=== PATIENT | male | born 1965 | race African-American/Black ===

== ENCOUNTER 2018-12-10 01:48 | Inpatient (IN) ==
[2018-12-10] MEDS ORDERED: ASPIRIN PO ONE (02:03)
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
[2018-12-10 02:32] LABS: BASO# 0.03 X1000 (0.0-0.2); BASO% 0.6 % (0.0-0.8); EOS% 2.1 % (0.0-10.0); HEMATOCRIT 42.8 % (42.0-52.0); HEMOGLOBIN 14.1 g/dL (14.0-18.0); IMM GRAN# 0.01 X1000 (0.0-0.04); IMM GRAN% 0.2 % (0.0-0.5); LYMPH# 1.54 X1000 (1.2-3.4); LYMPH% 32.8 % (20.5-51.1); MCHC 32.9 g/dL (33-37); MCV 97.1 FL (81-99); MONO# 0.67 X1000 (0.11-0.59); MONO% 14.3 % (1.7-9.3); MPV 9.6 FL (7.4-10.4); NEUT# 2.35 X1000 (1.4-6.5); PLT 262 X1000 (130-400); RBC 4.41 XMIL (4.7-6.1); RDW 13.6 % (11.5-14.5)
[2018-12-10 02:52] LABS: AGAP 10; ALBUMIN 3.8 g/dL (3.5-5.0); ALKALINE PHOSPHATASE 243 U/L (32-122); BUN 25 mg/dL (8-22); CALCIUM 9.1 mg/dL (8.8-10.2); CHLORIDE 99 mmol/L (98-107); COSMO 279; ESTIMATED GFR > 60; GLUCOSE 105 mg/dL (70-104); GOT 84 U/L (10-34); GPT 79 U/L (10-44); POTASSIUM 3.9 mmol/L (3.5-5.1); SODIUM 137 mmol/L (136-145); TCO2 28 mmol/L (25-35)
[2018-12-10 03:21] LABS: CK INDEX 2.2 (0.0-2.5); CK-MB 8.11 ng/mL (0.0-5.0)
[2018-12-10 03:21] LABS: UR AMPHETAMINES QUAL PRESUMPTIVE POSITIVE (NONE DETECT); UR BARBITUATES QUAL NONE DETECTED (NONE DETECT); UR BENZODIAZEPIN QUAL NONE DETECTED (NONE DETECT); UR CANNABINOIDS QUAL PRESUMPTIVE POSITIVE (NONE DETECT); UR COCAINE QUAL NONE DETECTED (NONE DETECT); UR METHADONE QUAL NONE DETECTED (NONE DETECT); UR METHAMPHETAMINE QUAL PRESUMPTIVE POSITIVE (NONE DETECT); UR OPIATES QUAL PRESUMPTIVE POSITIVE (NONE DETECT); UR OXYCODONE QUAL NONE DETECTED (NONE DETECT); UR PCP QUAL NONE DETECTED (NONE DETECT); UR PROPOXYPHENE QUAL NONE DETECTED (NONE DETECT); UR TCA QUAL NONE DETECTED (NONE DETECT)
[2018-12-10] MEDS ORDERED: LASIX IV ONE (04:05)
[2018-12-10] MEDS ORDERED: NITROGLYCERIN TOP ONE (04:06)
[2018-12-10] MEDS ORDERED: LOVENOX SUBQ ONE (05:57)
--- NOTE | 2018-12-10 05:59 | EKG Report ---
Test Performed on : 12/10/2018 01:59:02 AM Test Reason : chest pain Blood Pressure : / mmHG Vent. Rate : 100 BPM Atrial Rate : 100 BPM P-R Int : 240 ms QRS Dur : 144 ms QT Int : 368 ms P-R-T Axes : -04 -84 084 degrees QTc Int : 474 ms Sinus rhythm. with 1st degree AV block. Left axis deviation Left bundle branch block Abnormal ECG When compared with ECG of 31-MAR-2018 10:36, No significant change was found Unconfirmed Result
[2018-12-10] MEDS ORDERED: LOVENOX ONE (06:00)
[2018-12-10] MEDS ORDERED: HUMULIN R (PARKWAY) SUBQ ONE (06:13)
[2018-12-10] MEDS ORDERED: MORPHINE IV PRN (06:15)
[2018-12-10 07:03] LABS: CK INDEX 2.3 (0.0-2.5); CK-MB 7.04 ng/mL (0.0-5.0)
--- NOTE | 2018-12-10 07:13 | Diag Imaging Result Doc PS360 ---
EXAM: CHEST-PORTABLE 12/10/2018 HISTORY: chest pain TECHNIQUE: AP portable at 0236 COMMENT: There is cardiomegaly. There is some fluid in the minor fissure on the right which was not present on 03/31/2018. The inspiration is slightly less optimal. There is some hazy opacity over the left lower lobe. IMPRESSION: Minimal right pleural effusion. Pulmonary edema versus pneumonia left lower lobe. Electronically signed by Yair Montana 12/10/2018 7:10 AM
[2018-12-10] MEDS ORDERED: TYLENOL PO PRN (07:54)
[2018-12-10] MEDS ORDERED: NS 1,000 ML IV PRN (07:54)
[2018-12-10] MEDS ORDERED: ZOFRAN IV PRN (07:54)
[2018-12-10] MEDS: ROCEPHIN 1 GM in NS 50 ML IV SCH (09:07)
[2018-12-10] MEDS: PRILOSEC PO SCH ×2 (09:08→20:31)
[2018-12-10] MEDS: IMDUR PO SCH (09:09)
[2018-12-10] MEDS: ALDACTONE PO SCH (09:09)
[2018-12-10] MEDS: DITROPAN PO SCH ×2 (09:09→20:31)
[2018-12-10] MEDS: COREG PO SCH ×2 (09:09→20:31)
[2018-12-10] MEDS: HUMULIN N INSULIN (PARKWAY) SUBQ SCH (09:19)
--- NOTE | 2018-12-10 09:24 | Diag Imaging Result Doc PS360 ---
EXAM: CT ANGIOGRM PULMONARY ARTERIES 12/10/2018 HISTORY: sob TECHNIQUE: This exam was performed using automated exposure control, adjustment of mA or kV according to patient size, and/or use of iterative reconstruction technique. COMMENT: There is right paratracheal adenopathy, aorticopulmonary window adenopathy. There is motion artifact. There are no filling defects in the larger pulmonary artery branches. There is suboptimal opacification of the thoracic aorta which is not distended. There are no pleural fluid collections. No previous thoracic studies are available for comparison. Comparison is made with the abdominal study of 07/31/2018 where possible. There is some apparent apical fibrosis on the right. There is mild fibrotic scar formation in both lung bases which appear to have been present at the time of the previous abdominal study. There is anasarca in the subcutaneous fat. There is some free fluid in the abdomen. This was not appreciable on the previous study. There is cardiomegaly. There may be stenosis of the subclavian vein on the left. The patient was injected on the left and there are considerable collateral vessels seen over the anterior chest, the epidural plexus and around the scapula. The regional skeleton appears to be intact. IMPRESSION: No definite evidence of pulmonary emboli. Cardiomegaly. Anasarca and minimal ascites. Mediastinal adenopathy. Other nonacute findings as described above. Electronically signed by Yair Montana 12/10/2018 9:22 AM
[2018-12-10] MEDS ORDERED: PNEUMOVAX 23 IM ONE (10:50)
[2018-12-10] MEDS: DUONEB (A & A) INH SCH ×3 (11:33→21:09)
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
[2018-12-10] MEDS: HUMULIN R (PARKWAY) SUBQ SCH ×3 (12:28→20:31)
[2018-12-10] MEDS: LASIX IV SCH (16:36)
--- NOTE | 2018-12-10 17:06 | ECHO REPORT ---
ORDER DATE: 12/10/2018 INTERPRETING PHYSICIAN: Terry Orr MD. ECHOCARDIOGRAPHIC MEASUREMENTS: 1. Interventricular septum 1.5. 2. Left ventricular posterior wall 1.7. 3. Diastolic diameter 6.8. 4. Left atrium 5.74. 5. Aorta 3.3. SUMMARY OF THE 2-DIMENSIONAL FINDINGS: 1. Aortic valve leaflets are trileaflet. 2. Pulmonic valve was normal. There is mild pulmonary regurgitation. 3. Tricuspid valve was normal. 4. Mitral valve was normal. 5. There was moderate tricuspid regurgitation. Peak velocity across the tricuspid valve was 3 m/sec. 6. Pulmonary artery systolic pressure of 50 to 55 mmHg. 7. There is biatrial enlargement, [id number]. 8. There is mild mitral regurgitation. 9. There is no aortic stenosis or regurgitation. 10. Dilated left ventricle with severely reduced systolic function. There is concentric left ventricular hypertrophy. Estimated ejection fraction of 15%. 11. There is diastolic dysfunction grade 3. 12. There is no pericardial effusion, or obvious intracardiac mass or thrombus. cc: Terry Orr MD
--- NOTE | 2018-12-10 17:22 | Diag Imaging Result Doc PS360 ---
EXAM: US ABDOMEN-COMPLETE 12/10/2018 HISTORY: elevated liver enzymes TECHNIQUE: Abdominal ultrasound COMMENT: The liver is unremarkable. The gallbladder is clear and nontender. There is some fluid in the subhepatic space. The spleen is not enlarged. The kidneys are hyperechoic. This was also the case at the time the previous renal ultrasound of 03/30/2013. There is antegrade flow in the portal vein. There is no evidence of biliary dilatation the common bile duct measuring 3 mm. The visualized portions of the aorta and inferior vena cava are within normal limits. The pancreatic head is normal in appearance the remainder is obscured. IMPRESSION: Minimal ascites. Medical renal disease. Electronically signed by aYir Montana 12/10/2018 5:19 PM
[2018-12-10] MEDS: LIPITOR PO SCH (20:31)
[2018-12-10] MEDS: PULMICORT INH SCH (21:09)
[2018-12-11] MEDS: DUONEB (A & A) INH SCH ×4 (04:07→21:02)
[2018-12-11 05:42] LABS: BASO# 0.01 X1000 (0.0-0.2); BASO% 0.2 % (0.0-0.8); EOS# 0.07 X1000 (0.0-0.7); EOS% 1.4 % (0.0-10.0); HEMATOCRIT 39.2 % (42.0-52.0); HEMOGLOBIN 12.5 g/dL (14.0-18.0); IMM GRAN# 0.01 X1000 (0.0-0.04); IMM GRAN% 0.2 % (0.0-0.5); LYMPH# 0.95 X1000 (1.2-3.4); MCH 31.2 PG (27-31); MCHC 31.9 g/dL (33-37); MCV 97.8 FL (81-99); MONO# 0.62 X1000 (0.11-0.59); MONO% 12.4 % (1.7-9.3); MPV 9.8 FL (7.4-10.4); NEUT# 3.33 X1000 (1.4-6.5); NEUT% 66.8 % (42.2-75.2); PLT 219 X1000 (130-400); RBC 4.01 XMIL (4.7-6.1); RDW 13.5 % (11.5-14.5); WBC 4.99 X1000 (4.8-10.8)
[2018-12-11] MEDS: LASIX IV SCH ×2 (05:49→16:16)
[2018-12-11] MEDS: PRILOSEC PO SCH ×3 (05:49→21:16)
[2018-12-11 05:58] LABS: INR 1.36; PROTIME 17.5 Seconds (11.0-16.0)
[2018-12-11 05:59] LABS: PTT 31.6 Seconds (22.3-41.8)
[2018-12-11 06:01] LABS: HEMOGLOBIN A1C 7.6 % (4.8-6.0)
[2018-12-11] MEDS: HUMULIN R (PARKWAY) SUBQ SCH ×4 (06:16→21:16)
[2018-12-11 06:30] LABS: AGAP 9; ALKALINE PHOSPHATASE 210 U/L (32-122); BUN 22 mg/dL (8-22); CALCIUM 8.5 mg/dL (8.8-10.2); CHLORIDE 101 mmol/L (98-107); CHOLESTEROL 104 mg/dL (0-200); CK TOTAL 225 U/L (24-204); COSMO 286; CREATININE 1.1 mg/dL (0.7-1.2); ESTIMATED GFR > 60; GLUCOSE 222 mg/dL (70-104); GOT 76 U/L (10-34); GPT 79 U/L (10-44); HDL 37 mg/dL (35-55); LDL 53 mg/dL; MAGNESIUM 1.8 mg/dL (1.5-2.7); SODIUM 138 mmol/L (136-145); TCO2 28 mmol/L (25-35); TOTAL PROTEIN 6.5 g/dL (6.3-8.3); TRIGLYCERIDES 69 mg/dL (39-160); VLDL 14 mg/dL
--- NOTE | 2018-12-11 07:19 | Diag Imaging Result Doc PS360 ---
EXAM: CHEST-2 VIEWS HISTORY: f/u pna TECHNIQUE: Chest two views COMPARISON: 12/10/2018 FINDINGS: The lungs are well expanded. The heart is enlarged. The vessels are not distended. There are no infiltrates. No pleural effusions. IMPRESSION: Cardiomegaly Electronically signed by Pedro Mckenzie 12/11/2018 7:16 AM
[2018-12-11] MEDS: ROCEPHIN 1 GM in NS 50 ML IV SCH (07:45)
[2018-12-11] MEDS: LOVENOX SUBQ SCH (07:56)
[2018-12-11] MEDS: ASPIRIN PO SCH (08:02)
[2018-12-11] MEDS: ALDACTONE PO SCH (08:02)
[2018-12-11] MEDS: DITROPAN PO SCH ×2 (08:03→21:16)
[2018-12-11] MEDS: HUMULIN N INSULIN (PARKWAY) SUBQ SCH (08:03)
[2018-12-11] MEDS: IMDUR PO SCH (08:03)
[2018-12-11] MEDS: COREG PO SCH ×2 (08:03→21:16)
--- NOTE | 2018-12-11 10:40 | PROGRESS NOTE ---
DATE: 12/11/2018 SUBJECTIVE: The patient reports breathing much better. Denies any chest pain. The shortness of breath that he had at presentation is getting much better. OBJECTIVE: Vital Signs: Temperature 98.2 degrees, heart rate 96, respiratory rate 20, blood pressure 121/70, O2 saturation 100% on 2 L nasal cannula. General: This is a chronically ill- appearing, 53-year-old, male, lying in bed in no acute distress. Cardiovascular: S1, S2 heard. No murmurs, gallops, or rubs. Regular rate and rhythm. Respiratory: Minimal wheezing noted in both pulmonary bases. The patient is not using any accessory muscles or having work of breathing. Abdomen: Soft, nontender to palpation. Bowel sounds present. No organomegaly. Extremities: There is 2+ pitting edema in both lower extremities, a little bit better in comparing with yesterday. Neurological: The patient is alert and oriented x3. Moves all 4 extremities. LABORATORY DATA: Reviewed. ASSESSMENT AND PLAN: 1. Acute hypoxemic respiratory failure secondary to pulmonary edema. We have ordered echocardiogram, which basically confirmed his ejection fraction that is very low at 15%. At this point, will continue with the current management that includes his Lasix 40 mg intravenously every 12 hours. Will continue with the same management. Clinically, he is feeling better. 2. Left lower lobe pneumonia. The patient reports that that sensation of shortness of breath at presentation is getting much better. Will continue with Rocephin. 3. Coronary artery disease. The patient is not complaining of any chest pain. Will continue with the current medications. 4. Chronic obstructive pulmonary disease. The patient is not in any exacerbation. Will provide breathing treatments only. 5. Hypertension. Blood pressure is under control. Will continue with the same management. 6. Hyperlipidemia. Will continue with the statin. 7. Polysubstance abuse. The patient is strongly recommended to stop using drugs. 8. Diabetes mellitus type 2. Will continue with sliding scale insulin and Accu-Chek before meals and also at bedtime. Hemoglobin A1c is 7.6, which means pretty much well-controlled diabetes. cc: John Vines MD
[2018-12-11] MEDS: PULMICORT INH SCH ×2 (11:20→21:03)
[2018-12-11] MEDS: NICODERM PATCH TD SCH (12:29)
[2018-12-11] MEDS: LIPITOR PO SCH (21:16)
[2018-12-12] MEDS: DUONEB (A & A) INH SCH (04:25)
--- NOTE | 2018-12-12 05:22 | EKG Report ---
Test Performed on : 12/11/2018 9:44:52 PM Test Reason : VTACH Blood Pressure : / mmHG Vent. Rate : 102 BPM Atrial Rate : 102 BPM P-R Int : 200 ms QRS Dur : 146 ms QT Int : 404 ms P-R-T Axes : 000 -80 092 degrees QTc Int : 526 ms Sinus tachycardia. Left axis deviation Left bundle branch block Abnormal ECG When compared with ECG of 10-DEC-2018 01:59, (Unconfirmed) [place] interval has decreased Unconfirmed Result
[2018-12-12 05:49] LABS: BASO# 0.01 X1000 (0.0-0.2); BASO% 0.2 % (0.0-0.8); EOS# 0.11 X1000 (0.0-0.7); HEMATOCRIT 41.2 % (42.0-52.0); HEMOGLOBIN 13.3 g/dL (14.0-18.0); IMM GRAN# 0.02 X1000 (0.0-0.04); IMM GRAN% 0.4 % (0.0-0.5); LYMPH# 0.97 X1000 (1.2-3.4); LYMPH% 17.4 % (20.5-51.1); MCH 31.8 PG (27-31); MCHC 32.3 g/dL (33-37); MCV 98.6 FL (81-99); MONO# 0.71 X1000 (0.11-0.59); MONO% 12.7 % (1.7-9.3); MPV 9.9 FL (7.4-10.4); NEUT# 3.75 X1000 (1.4-6.5); NEUT% 67.3 % (42.2-75.2); PLT 246 X1000 (130-400); RBC 4.18 XMIL (4.7-6.1); RDW 13.5 % (11.5-14.5); WBC 5.57 X1000 (4.8-10.8)
[2018-12-12] MEDS: HUMULIN R (PARKWAY) SUBQ SCH (06:06)
[2018-12-12] MEDS: PRILOSEC PO SCH (06:06)
[2018-12-12] MEDS: LASIX IV SCH (06:06)
[2018-12-12 06:13] LABS: AGAP 9; ALKALINE PHOSPHATASE 217 U/L (32-122); BUN 18 mg/dL (8-22); CHLORIDE 102 mmol/L (98-107); COSMO 284; CREATININE 1.2 mg/dL (0.7-1.2); ESTIMATED GFR > 60; GLUCOSE 218 mg/dL (70-104); GOT 67 U/L (10-34); GPT 81 U/L (10-44); MAGNESIUM 1.8 mg/dL (1.5-2.7); POTASSIUM 4.6 mmol/L (3.5-5.1); SODIUM 138 mmol/L (136-145); TCO2 27 mmol/L (25-35); TOTAL PROTEIN 7.3 g/dL (6.3-8.3)
[2018-12-12 07:39] VITALS: BP 132/74
[2018-12-12] MEDS: DITROPAN PO SCH (08:11)
[2018-12-12] MEDS: ASPIRIN PO SCH (08:11)
[2018-12-12] MEDS: ROCEPHIN 1 GM in NS 50 ML IV SCH (08:11)
[2018-12-12] MEDS: LOVENOX SUBQ SCH (08:11)
[2018-12-12] MEDS: COREG PO SCH (08:11)
[2018-12-12] MEDS: IMDUR PO SCH (08:11)
[2018-12-12] MEDS: ALDACTONE PO SCH (08:11)
[2018-12-12] MEDS: HUMULIN N INSULIN (PARKWAY) SUBQ SCH (08:12)
[2018-12-12] MEDS: NICODERM PATCH TD SCH (08:43)
--- NOTE | 2018-12-13 07:47 | DISCHARGE SUMMARY ---
ADMISSION DATE: 12/10/2018 DISCHARGE DATE: 12/12/2018 CONSULTATIONS: None. PERTINENT PROCEDURES: Pulmonary arteriogram. No evidence of PE, cardiomegaly, anasarca, minimal ascites, mediastinal adenopathy. No other acute findings. Echocardiogram, EF of 15%, diastolic dysfunction grade 3. Abdominal ultrasound, minimal ascites, medical renal disease. DISCHARGE DIAGNOSES: 1. Acute hypoxemic respiratory failure secondary to pulmonary edema, improved. Patient is saturating 98% on room air. 2. Left lower lobe pneumonia. Patient will be discharged on oral antibiotics. 3. Coronary artery disease. No chest pain. 4. Chronic obstructive pulmonary disease without exacerbation. 5. Hypertension, controlled. 6. Hyperlipidemia. Continue statin. 7. Polysubstance abuse. The patient has been educated on abstinence. 8. Diabetes mellitus type 2. The patient will continue on home medications and a diabetic diet. 9. Acute on chronic systolic congestive heart failure with ejection fraction showing 15%. The patient has been diuresed. 10. Pulmonary hypertension. Echocardiogram showed 60 to 65 mmHg. He was started on Coreg as well as Lasix. Will continue his oral home Lasix. 11. Medical noncompliance. The patient has been educated to take his medications. 12. Fatty liver with hyperbilirubinemia and transaminitis. Another hepatitis profile was done. 13. Polysubstance abuse. The patient's toxicology screen was positive for opiates, amphetamines, methamphetamines, and cannabinoids. Again, he has been educated on abstinence. HOSPITAL COURSE: Briefly, Mr. Henley is a 53-year-old, male with a past medical history of congestive heart failure since 2011, diabetes mellitus type 2, COPD, hypertension, renal infarct, medical noncompliance, coronary artery disease with SD in 1991, left eye blindness, obstructive sleep apnea. Reported he has been out of his home medications for 3 to 4 months. He reported, for 2 weeks, he has been coughing up a greenish-yellow colored phlegm, worsening shortness of breath at night, he was having to sit up in a chair to sleep, and swelling to the lower extremities more than normal. He did admit to using methamphetamines and marijuana. Imaging revealed a left lower lobe pneumonia and a right pleural effusion and some pulmonary edema, so he was admitted and treated for pneumonia and congestive heart failure. Started on antibiotics and IV Lasix, diuresed appropriately. He is now saturating well on room air. His last chest x-ray shows improvement in his pulmonary edema and he will be discharged home today. HOME MEDICATIONS: 1. Glipizide 10 mg p.o. b.i.d. 2. Lasix 80 mg p.o. daily. 3. Cefdinir 300 mg p.o. b.i.d. FOLLOWUP: Mr. Henley has been encouraged to follow up with the primary care provider, take his home medications as instructed, and continue with polysubstance abuse abstinence. He can return to the ED or call 911 for any worsening of symptoms. Dictated by JAYCOB Ba for John Vines MD Addendum: Patient seen and examined by myself. Agree with JAYCOB note. It reflects my assessment and plan. Patient is being discharged in stable condition. Will be seen by PCP in a week. cc: Jhon Vines MD MTDD
[2018-12-13 12:53] LABS: HEPATITIS PROFILE ACUTE SEE COMMENTS
== END 2018-12-12 09:30 | disposition home or self-care (01) | DRG 291 ==
LOC: P.ED 01:48 → P.MEDSURG 01:48 → OBSVTOIN 06:39
PROVIDERS: ATTEND Internal Medicine

== ENCOUNTER 2018-12-29 12:22 | Inpatient (IN) ==
[2018-12-29] MEDS ORDERED: ASPIRIN PO ONE (12:38)
[2018-12-29] MEDS ORDERED: DUONEB (A & A) INH ONE (12:49)
--- NOTE | 2018-12-29 13:16 | Diag Imaging Result Doc PS360 ---
CHEST-2 VIEWS - 12/29/2018 INDICATION: sob cough hx chf pulmonary edema pneumonia COMPARISON: 12/11/2018 FINDINGS: There is significant cardiomegaly. There is a small focal infiltrate in the lateral left upper chest. There is some stable scarring in the right costophrenic angle. No pneumothorax or significant pleural effusion. No pulmonary edema. IMPRESSION: 1. Left upper lobe infiltrate/pneumonia. 2. Cardiomegaly. Electronically signed by Reed Martínez 12/29/2018 1:14 PM
[2018-12-29 13:23] LABS: ESTIMATED GFR > 60
[2018-12-29 13:24] LABS: HEMATOCRIT 44.6 % (42.0-52.0); HEMOGLOBIN 14.9 g/dL (14.0-18.0); MCH 32.8 PG (27-31); MCHC 33.4 g/dL (33-37); MCV 98.2 FL (81-99); PLT 191 X1000 (130-400); RBC 4.54 XMIL (4.7-6.1); RDW 15.4 % (11.5-14.5)
[2018-12-29 13:25] LABS: AGAP 6; BUN 25 mg/dL (8-22); CHLORIDE 102 mmol/L (98-107); COSMO 280; CREATININE 1.2 mg/dL (0.7-1.2); GLUCOSE 165 mg/dL (70-104); LYMPH% 30.4 % (20.5-51.1); MPV 9.5 FL (7.4-10.4); NEUT% 57.1 % (42.2-75.2); SODIUM 136 mmol/L (136-145); TCO2 29 mmol/L (25-35)
[2018-12-29 13:26] LABS: ALBUMIN 3.3 g/dL (3.5-5.0); ALKALINE PHOSPHATASE 222 U/L (32-122); CK PROFILE 333 U/L (24-204); GOT 59 U/L (10-34); GPT 63 U/L (10-44); TOTAL PROTEIN 7.7 g/dL (6.3-8.3)
[2018-12-29 13:27] LABS: CALCIUM 6.8 mg/dL (8.8-10.2)
[2018-12-29] MEDS ORDERED: LEVAQUIN 500 MG/D5W 500 MG/100 ML IVPB IV ONE (13:28)
[2018-12-29 13:29] LABS: BANDS 1 % (0-1); LYMPHS 33 % (21-51); MONO 6 % (1-9); SEGS 60 % (42-75)
[2018-12-29] MEDS ORDERED: CALCIUM GLUCONATE 1 GM in NS 50 ML IV ONE (13:32)
[2018-12-29 13:38] LABS: INR 1.26; PROTIME 16.5 Seconds (11.0-16.0); PTT 29.3 Seconds (22.3-41.8)
[2018-12-29 13:46] LABS: CK INDEX 2.6 (0.0-2.5); CK-MB 8.72 ng/mL (0.0-5.0)
--- NOTE | 2018-12-29 14:19 | EKG Report ---
Test Performed on : 12/29/2018 1:00:03 PM Test Reason : sob cp Blood Pressure : / mmHG Vent. Rate : 103 BPM Atrial Rate : 103 BPM P-R Int : 200 ms QRS Dur : 140 ms QT Int : 398 ms P-R-T Axes : 000 -79 086 degrees QTc Int : 521 ms Sinus tachycardia. Left axis deviation Nonspecific intraventricular block Cannot rule out Anteroseptal infarct , age undetermined T wave abnormality, consider lateral ischemia Abnormal ECG When compared with ECG of 11-DEC-2018 21:44, Previous ECG has undetermined rhythm, needs review Nonspecific intraventricular block has replaced Left bundle branch block Minimal criteria for Anteroseptal infarct are now present Unconfirmed Result
--- NOTE | 2018-12-29 14:27 | PROVIDER DOCUMENTATION ---
This chart was entered by Oscar Taveras Scribe, acting as scribe for Ruben Hughes MD. HPI-Respiratory General - General Chief Complaint: Shortness of Breath Stated Complaint: REVISIT / RETURN Time Seen by Provider: 12/29/18 12:28 Source: patient Allergies/Adverse Reactions: Patient Allergies Allergy/AdvReac Type Severity Reaction Status Date / Time lisinopril Allergy Intermediate SWELLING Verified 02/13/18 23:40 digoxin AdvReac Severe DIZZINESS Verified 02/13/18 23:40 Home Medications: Home Medication List Medication Instructions Recorded Confirmed Last Taken Type Furosemide [Lasix] 80 mg PO DAILY 05/25/14 12/10/18 05/25/14 06:00 History 1 Glipizide [Glipizide Xl] 10 mg PO BID 05/25/14 12/10/18 10/27/18 History Cefdinir 300 mg PO BID #20 cap 12/12/18 Unknown Rx Mirtazapine [Remeron] 15 mg PO QHS #90 tab 12/12/18 Unknown Rx - History of Present Illness-Resp Nature of Presenting Problem: Pt is a 53 yom who presents to the ED with a CC of shortness of breath. Pt reports he was seen at [facility] ED recently for similar symptoms. Pt also complains of chest pain, edema, and a productive cough. Pt reports he recently finished a prescription of antibiotics from his previous ED visit. Pt reports recent polysubstance abuse. Upon examination the pt had 1+ edema bilaterally to the lower extremities. Quality of Pain: reports: dull Severity in ED: reports: mild Onset/Duration: reports: other (12 days) Timing: reports: still present Cough Quality/Degree: reports: mild, productive cough Episode Frequency: occasional episodes Current Respiratory Medication Therapy: Initiated see nurses note Associated Symptoms: reports: cough, nasal congestion, shortness of breath Similar Symptoms Previously?: Yes Recently seen or treated by another doctor?: Yes Review of Systems - Adult - REVIEW OF SYSTEMS - ADULT Constitutional: reports: no symptoms reported Eyes: reports: no symptoms reported Ears, Nose, Mouth & Throat: reports: see HPI, sinus problem Cardiovascular: reports: see HPI, chest pain, edema Respiratory: reports: see HPI, cough, excessive sputum production, shortness of breath Gastrointestinal: reports: no symptoms reported Genitourinary: reports: no symptoms reported Musculoskeletal: reports: no symptoms reported Integumentary: reports: no symptoms reported Neurological: reports: no symptoms reported Psychiatric: reports: no symptoms reported Endocrine: reports: no symptoms reported Hematologic/Lymphatic: reports: no symptoms reported Allergic/Immunologic: reports: no symptoms reported All Other Systems: Reviewed and Negative Past History - Adult - PAST MEDICAL HISTORY-ADULT Review of Records: reports: Old Records Reviewed, Nursing Assessment Review, Medications Reviewed, Social history reviewed & non-contributory. Major Childhood Illnesses: reports: denies history Cardiovascular: reports: blood clots, CAD, CHF, HTN, hyperlipidemia, pacemaker Respiratory: reports: COPD, lung disease, pneumonia, bronchitis Gastrointestinal: reports: denies history Obstetrical/Gynecological: reports: denies history Genitourinary: reports: denies history Musculoskeletal: reports: denies history Neurological: reports: denies history, Seizures/Epilepsy Endocrine/Immune: reports: Diabetes Other Conditions: reports: denies history - PRIOR SURGERIES/PROCEDURES Surgical/Procedure History: reports: pacemaker, other (eyes) - IMMUNIZATION STATUS Childhood Immunizations: See Nurse Assessment Flu Vaccine: See Nurse Assessment - FAMILY HISTORY Family History: seizures - SOCIAL HISTORY Smoking: cigarettes, less than 1 pack/day Substance Use: alcohol, other Alcohol Use Frequency: occasionally Physical Exam-General - PHYSICAL EXAM-ADULT Initial Vital Signs Reviewed: Yes - CONSTITUTIONAL General Appearance: alert, mild distress - EYES Eyes: PERRL/EOMI - HEAD, EARS, NOSE, MOUTH & THROAT HENMT: moist mucous membranes - NECK Neck: non-tender, full range of motion - RESPIRATORY Respiratory: chest non-tender, lungs clear - CARDIOVASCULAR Cardiovascular: normal peripheral pulses, regular rate, rhythm - GASTROINTESTINAL (ABDOMEN) Abdominal Exam: non tender, soft - MUSCULOSKELETAL Extremity: normal range of motion, non-tender, pedal edema - SKIN Integumentary: normal color, warm/dry, swelling - NEUROLOGIC Neurologic: grossly normal - PSYCHIATRIC Psych/Mental Status: normal mood/affect, normal thought content, normal thought process, oriented x 3 Progress - PLAN OF CARE/RESULTS Progress/Plan/Lab Results: Vital Signs - 8 hr 12/29/18 12:30 12/29/18 13:00 12/29/18 13:39 Temperature 98.1 F Pulse Rate 102 H 108 H 100 H Respiratory Rate 18 38 H 24 Blood Pressure 139/102 120/91 O2 Sat by Pulse Oximetry 94 L 93 L 99 12/29/18 14:49 12/29/18 15:00 Temperature Pulse Rate 101 H 105 H Respiratory Rate 25 H 22 Blood Pressure 124/92 124/92 O2 Sat by Pulse Oximetry 99 100 Laboratory Results - last 24 hr 12/29/18 12/29/18 12/29/18 12:50 12:50 12:50 WBC 4.50 L RBC 4.54 L Hgb 14.9 Hct 44.6 MCV 98.2 MCH 32.8 H MCHC 33.4 RDW Std Deviation 15.4 H Plt Count 191 MPV 9.5 Neut % (Auto) 57.1 Lymph % (Auto) 30.4 Lucas % (Auto) Not Reportable Eos % (Auto) Not Reportable Baso % (Auto) Not Reportable Neut # (Auto) 2.50 Lymph # (Auto) 1.40 Lucas # (Auto) Not Reportable Eos # (Auto) Not Reportable Baso # (Auto) Not Reportable Segmented Neutrophils 60 Band Neutrophils 1 Lymphocytes 33 Monocytes 6 PT INR PTT (Actin FS) Sodium 136 Potassium 4.0 Chloride 102 Carbon Dioxide 29 Anion Gap 6 BUN 25 H Creatinine 1.2 Estimated GFR/1.73 m2 > 60 BUN/Creatinine Ratio 21 Glucose 165 H Calculated Osmolality 280 Calcium 6.8 L* Total Bilirubin 3.60 H AST 59 H ALT 63 H Alkaline Phosphatase 222 H Creatine Kinase 333 H Creatine Kinase Index 2.6 H CK-MB (CK-2) 8.72 H Troponin T Fvf-E-[place]gue[place] Pept 5829 H Total Protein 7.7 Albumin 3.3 L Globulin 4.0 Albumin/Globulin Ratio 1.0 Plasma Lactate Urine Opiates Screen Ur Oxycodone Screen Urine Methadone Screen U Propoxyphene Qual Ur Barbituates Screen Ur Tricyclics Screen Ur Phencyclidine Scrn Ur Amphetamines Screen U Methamphetamines Scrn U Benzodiazepines Scrn Urine Cocaine Screen U Cannabinoids Screen 12/29/18 12/29/18 12/29/18 12:50 12:50 13:24 WBC RBC Hgb Hct MCV MCH MCHC RDW Std Deviation Plt Count MPV Neut % (Auto) Lymph % (Auto) Lucas % (Auto) Eos % (Auto) Baso % (Auto) Neut # (Auto) Lymph # (Auto) Lucas # (Auto) Eos # (Auto) Baso # (Auto) Segmented Neutrophils Band Neutrophils Lymphocytes Monocytes PT 16.5 H INR 1.26 PTT (Actin FS) 29.3 Sodium Potassium Chloride Carbon Dioxide Anion Gap BUN Creatinine Estimated GFR/1.73 m2 BUN/Creatinine Ratio Glucose Calculated Osmolality Calcium Total Bilirubin AST ALT Alkaline Phosphatase Creatine Kinase Creatine Kinase Index CK-MB (CK-2) Troponin T 0.019 Cjg-E-Kskcokfsydd Pept Total Protein Albumin Globulin Albumin/Globulin Ratio Plasma Lactate Urine Opiates Screen NONE DETECTED Ur Oxycodone Screen NONE DETECTED Urine Methadone Screen NONE DETECTED U Propoxyphene Qual NONE DETECTED Ur Barbituates Screen NONE DETECTED Ur Tricyclics Screen NONE DETECTED Ur Phencyclidine Scrn NONE DETECTED Ur Amphetamines Screen PRESUMPTIVE POSITIVE A U Methamphetamines Scrn PRESUMPTIVE POSITIVE A U Benzodiazepines Scrn NONE DETECTED Urine Cocaine Screen NONE DETECTED U Cannabinoids Screen NONE DETECTED 12/29/18 13:43 WBC RBC Hgb Hct MCV MCH MCHC RDW Std Deviation Plt Count MPV Neut % (Auto) Lymph % (Auto) Lucas % (Auto) Eos % (Auto) Baso % (Auto) Neut # (Auto) Lymph # (Auto) Lucas # (Auto) Eos # (Auto) Baso # (Auto) Segmented Neutrophils Band Neutrophils Lymphocytes Monocytes PT INR PTT (Actin FS) Sodium Potassium Chloride Carbon Dioxide Anion Gap BUN Creatinine Estimated GFR/1.73 m2 BUN/Creatinine Ratio Glucose Calculated Osmolality Calcium Total Bilirubin AST ALT Alkaline Phosphatase Creatine Kinase Creatine Kinase Index CK-MB (CK-2) Troponin T Epm-X-Wdtsnpcvnta Pept Total Protein Albumin Globulin Albumin/Globulin Ratio Plasma Lactate 1.2 Urine Opiates Screen Ur Oxycodone Screen Urine Methadone Screen U Propoxyphene Qual Ur Barbituates Screen Ur Tricyclics Screen Ur Phencyclidine Scrn Ur Amphetamines Screen U Methamphetamines Scrn U Benzodiazepines Scrn Urine Cocaine Screen U Cannabinoids Screen Orders Category Date Time Status Apply Mechanical Device [QM] ORDERED Care 12/29/18 14:50 Active Cardiac Monitoring DIRECTED Care 12/29/18 12:39 Active FSBS/Accucheck Result AC + HS Care 12/29/18 14:50 Active Oxygen Therapy- ED Nursing DIRECTED Care 12/29/18 12:39 Active Saline Loc NOW Care 12/29/18 12:39 Active Update & Confirm Home Medicati ROUTINE Care 12/29/18 14:50 Active Z-Document. for Tele Applied ORDERED Care 12/29/18 14:50 Active CHEST-2 VIEWS [RAD] Stat Exams 12/29/18 12:39 Completed BLOOD CULTURE [BLDCUL] Stat Lab 12/29/18 13:28 Ordered CBC WITH DIFF [HEME] DAILY Lab 12/30/18 06:00 Ordered CBC WITH DIFF [HEME] DAILY Lab 12/31/18 06:00 Ordered CBC WITH ELECTRONIC DIFF [HEME] Stat Lab 12/29/18 12:50 Completed CK PROFILE [SP CHEM] Q6H Lab 12/29/18 17:00 Ordered CK PROFILE [SP CHEM] Q6H Lab 12/29/18 23:00 Ordered CK PROFILE [SP CHEM] Stat Lab 12/29/18 12:50 Completed CK PROFILE [SP CHEM] Timed Lab 12/29/18 14:38 Received COMPREHENSIVE METABOLIC PANEL [CHEM] Routine Lab 12/30/18 05:00 Ordered COMPREHENSIVE METABOLIC PANEL [CHEM] Stat Lab 12/29/18 12:50 Completed LACTATE, PLASMA [CHEM] Stat Lab 12/29/18 13:43 Completed MAGNESIUM [CHEM] Routine Lab 12/30/18 05:00 Ordered PRO B-NATRIURETIC PEPTIDE Stat Lab 12/29/18 12:50 Completed PROTIME WITH INR [COAG] Stat Lab 12/29/18 12:50 Completed PTT [COAG] Stat Lab 12/29/18 12:50 Completed TROPONIN T Q6H Lab 12/29/18 17:00 Ordered TROPONIN T Q6H Lab 12/29/18 23:00 Ordered TROPONIN T Stat Lab 12/29/18 12:50 Completed TROPONIN T Timed Lab 12/29/18 14:38 Received URINE DRUG SCREEN PL Stat Lab 12/29/18 13:24 Completed Albuterol 2.5MG/Ipratrop 0.5MG [Duoneb (A & A)] Med 12/29/18 12:49 Discontinued 3 ml INH NOW ONE Aspirin Med 12/29/18 12:38 Discontinued 325 mg PO NOW ONE Calcium Gluconate 1 gm Med 12/29/18 13:32 Discontinued 0.9% Sodium Chloride Inj [Ns] 50 ml IV NOW Furosemide [Lasix] Med 12/29/18 14:51 Discontinued 40 mg IV NOW ONE Furosemide [Lasix] Med 12/29/18 21:00 Active 40 mg IV Q12H Levofloxacin 500 mg/D5w [Levaquin 500 mg/D5w] Med 12/29/18 13:28 Discontinued 500 mg in 100 ml IV NOW Levofloxacin 750 mg/D5w [Levaquin 750 mg/D5w] Med 12/30/18 09:00 Active 750 mg in 150 ml IV Q24H Piperacillin/Tazobactam [Zosyn] 3.375 gm Med 12/29/18 15:00 Active 0.9% Sodium Chloride Inj [Ns] 50 ml IV Q6H Aerosol Treatments Routine Oth 12/29/18 12:49 Completed Aerosol Treatments Stat Oth 12/29/18 12:49 Completed CP/SOB/Palp >45 yrs of Age Stat Ot 12/29/18 12:38 Ordered Incentive Spirometer RTQ4H Ot 12/29/18 15:30 Ordered Incentive Spirometer RTQ4H Ot 12/29/18 19:30 Ordered Incentive Spirometer RTQ4H Ot 12/29/18 23:30 Ordered Incentive Spirometer RTQ4H Ot 12/30/18 03:30 Ordered Incentive Spirometer RTQ4H Ot 12/30/18 07:30 Ordered Incentive Spirometer RTQ4H Ot 12/30/18 11:30 Ordered Incentive Spirometer RTQ4H Ot 12/30/18 15:30 Ordered Incentive Spirometer RTQ4H Ot 12/30/18 19:30 Ordered Incentive Spirometer RTQ4H Ot 12/30/18 23:30 Ordered Incentive Spirometer RTQ4H Ot 12/31/18 03:30 Ordered Telemetry [OM.EQ] Routine Ot 12/29/18 14:50 Active EKG [EKG] Stat Ther 12/29/18 12:39 Draft EKG [EKG] Stat Ther 12/29/18 14:50 Ordered Transfer/Admit Order [TRANSFER] Routine Transfer 12/29/18 14:58 Ordered Pt sats returned to 95% with 2 L O2 by N/C. Result Diagrams: 12/29/18 12:50 12/29/18 12:50 - EKG 1 Time of EKG reading by physician:: 13:00 EKG Read and Signed by:: Ruben Hughes EKG Interpretation (*Must complete 3 of following elements*): Abnormal (Left axis deviation; Nonspecific intraventricular block; cannot rule out anteroseptal infarct, age undetermined; T wave abnormality, consider lateral ischemia) Rate: 103 Rhythm: Sinus tachycardia [place]: left QRS: normal [place] Interval: normal ST Wave: non-specific ST changes 2 Time of EKG reading by physician:: 13:40 EKG Read and Signed by:: Ruben Hughes EKG Interpretation (*Must complete 3 of following elements*): Abnormal (Sinus rhythm with 1st degree AV block; Possible left atrial enlargement; Left axis deviation; Left bundle branch block) Rate: 83 Rhythm: Sinus rhythm with 1st degree AV block [place]: left QRS: normal [place] Interval: normal ST Wave: normal - XRAY 1 XRAY: Bilateral XRAY Study: Chest Impression: See EMR Report ( CHEST-2 VIEWS - 12/29/2018 INDICATION: sob cough hx chf pulmonary edema pneumonia COMPARISON: 12/11/2018 FINDINGS: There is significant cardiomegaly. There is a small focal infiltrate in the lateral left upper chest. There is some stable scarring in the right c ostophrenic angle. No pneumothorax or significant pleural effusion. No pulmonary edema. IMPRESSION: 1. Left upper lobe infiltrate/pneumonia. 2. Cardiomegaly. Electronically signed by Reed Martínez 12/29/2018 1:14 PM 12/29/18 1314 Interpreting Physician: Reed Martínez MD Dictated Date/Time: 12/29/18 1312 cc: Ruben Hughes MD; None,PCP) - CONSULTS/PCP/HOSPITALIST Notification #1 *Consult/PCP/Hospitalist*: Pastora Navarro LABOR RELATIONS SPECIALIST for Dr Pool Consult Disposition: Admit Departure - Departure Date of Disposition Decision: 12/29/18 Time of Disposition Decision: 14:23 DIAGNOSIS: CHF (congestive heart failure), Pneumonia, Hypocalcemia Disposition: ADMITTED INPATIENT 09 Certified Medical Emergency: Emergent Condition: Fair - Critical Care Note This patient required my direct & personal management of CC.: Yes Attestation - Physician/ SHANEL Attestation Patient care was provided by Advanced Practice Provider:: No The physician spent face to face time with patient:: Yes Advanced Practice Provider documentation review:: Supervising physician onsite a nd consulted in the evaluation and care of this patient. The physician did have a face to face encounter with the patient. This chart was documented by the indicated scribe, (Oscar Taveras, Esmer) and accurately reflects the services I performed and decisions made by , Ruben Hughes MD, as attested by the provider's signature.
[2018-12-29 14:32] LABS: UR AMPHETAMINES QUAL PRESUMPTIVE POSITIVE (NONE DETECT); UR BARBITUATES QUAL NONE DETECTED (NONE DETECT); UR BENZODIAZEPIN QUAL NONE DETECTED (NONE DETECT); UR CANNABINOIDS QUAL NONE DETECTED (NONE DETECT); UR COCAINE QUAL NONE DETECTED (NONE DETECT); UR METHADONE QUAL NONE DETECTED (NONE DETECT); UR METHAMPHETAMINE QUAL PRESUMPTIVE POSITIVE (NONE DETECT); UR OPIATES QUAL NONE DETECTED (NONE DETECT); UR OXYCODONE QUAL NONE DETECTED (NONE DETECT); UR PCP QUAL NONE DETECTED (NONE DETECT); UR PROPOXYPHENE QUAL NONE DETECTED (NONE DETECT); UR TCA QUAL NONE DETECTED (NONE DETECT)
[2018-12-29] MEDS ORDERED: LASIX IV ONE (14:51)
[2018-12-29] MEDS ORDERED: LASIX ONE (15:13)
--- NOTE | 2018-12-29 15:50 | EKG Report ---
Test Performed on : 12/29/2018 3:39:34 PM Test Reason : protocol Blood Pressure : / mmHG Vent. Rate : 083 BPM Atrial Rate : 083 BPM P-R Int : 270 ms QRS Dur : 142 ms QT Int : 400 ms P-R-T Axes : 050 -76 094 degrees QTc Int : 470 ms Sinus rhythm. with 1st degree AV block. Possible Left atrial enlargement Left axis deviation Left bundle branch block Abnormal ECG When compared with ECG of 29-DEC-2018 13:00, (Unconfirmed) [place] interval has increased Unconfirmed Result
[2018-12-29 16:03] LABS: CK INDEX 2.5 (0.0-2.5); CK-MB 7.51 ng/mL (0.0-5.0)
[2018-12-29] MEDS: ZOSYN 3.375 GM in NS 50 ML IV SCH ×2 (16:47→21:18)
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
[2018-12-29 18:25] LABS: CK INDEX 2.7 (0.0-2.5); CK-MB 7.16 ng/mL (0.0-5.0)
--- NOTE | 2018-12-29 20:07 | HISTORY AND PHYSICAL ---
CHIEF COMPLAINT: Shortness of breath. ADDENDUM: Patient seen and examined by myself. Full note dictated and discussed with nurse practitioner. Patient presented to the hospital with increased work of breathing, shortness of breath. He unfortunately has an ejection fraction of 15%, has been incredibly noncompliant with his medications. We are going to admit him to the hospital, place him on antibiotics as it appears though he has pneumonia. We will consider Entresto, and we will follow. cc: Obie Pool MD
[2018-12-29] MEDS: LASIX IV SCH (21:18)
[2018-12-29] MEDS: ENTRESTO 24 MG-26 MG TABLET PO SCH (21:33)
[2018-12-29 23:55] LABS: CK INDEX 2.8 (0.0-2.5); CK-MB 6.73 ng/mL (0.0-5.0)
[2018-12-30] MEDS: ZOSYN 3.375 GM in NS 50 ML IV SCH ×3 (02:39→19:33)
[2018-12-30 05:09] LABS: BASO# 0.02 X1000 (0.0-0.2); BASO% 0.4 % (0.0-0.8); EOS# 0.12 X1000 (0.0-0.7); EOS% 2.7 % (0.0-10.0); HEMATOCRIT 42.7 % (42.0-52.0); HEMOGLOBIN 13.8 g/dL (14.0-18.0); LYMPH# 1.27 X1000 (1.2-3.4); LYMPH% 28.2 % (20.5-51.1); MCH 31.4 PG (27-31); MCHC 32.3 g/dL (33-37); MCV 97.3 FL (81-99); MONO# 0.57 X1000 (0.11-0.59); MONO% 12.6 % (1.7-9.3); NEUT# 2.53 X1000 (1.4-6.5); NEUT% 56.1 % (42.2-75.2); PLT 169 X1000 (130-400); RBC 4.39 XMIL (4.7-6.1); RDW 14.8 % (11.5-14.5); WBC 4.51 X1000 (4.8-10.8)
[2018-12-30 05:38] LABS: AGAP 10; ALBUMIN 2.8 g/dL (3.5-5.0); ALKALINE PHOSPHATASE 219 U/L (32-122); BUN 27 mg/dL (8-22); CALCIUM 8.7 mg/dL (8.8-10.2); CHLORIDE 105 mmol/L (98-107); COSMO 284; CREATININE 1.1 mg/dL (0.7-1.2); ESTIMATED GFR > 60; GLUCOSE 152 mg/dL (70-104); GOT 49 U/L (10-34); GPT 53 U/L (10-44); MAGNESIUM 1.7 mg/dL (1.5-2.7); POTASSIUM 4.1 mmol/L (3.5-5.1); SODIUM 138 mmol/L (136-145); TCO2 23 mmol/L (25-35); TOTAL PROTEIN 7.4 g/dL (6.3-8.3)
[2018-12-30] MEDS: LASIX IV SCH ×2 (09:53→21:45)
[2018-12-30] MEDS: LEVAQUIN 750 MG/D5W 750 MG/150 ML IVPB IV SCH (09:53)
[2018-12-30] MEDS: ENTRESTO 24 MG-26 MG TABLET PO SCH ×2 (09:53→21:44)
--- NOTE | 2018-12-30 13:41 | PROGRESS NOTE ---
DATE: 12/30/2018 SUBJECTIVE: The patient notes that he still feels bad, but feels better. Notes that he has had less cough, less shortness of breath, less fever, less dyspnea on exertion. Denies any fevers or chills. PHYSICAL EXAMINATION: Temperature 97, pulse 92, respiratory 25, BP 106/74.General: Patient is awake, in no current respiratory distress. He is pleasant to talk with. HEENT: Normocephalic. Neck: Supple. Cardiovascular: Regular rate. Chest: Decreased but equal. No crackles currently. No wheezing. Abdomen: Soft. Extremities: Moves all extremities. Neurologic: No changes. ASSESSMENT: 1. Congestive heart failure with a very low ejection fraction of 15%. We started him on Entresto. He seems to be tolerating. We are going to continue Lasix today and hopefully can transition to p.o. Lasix tomorrow if he continues to improve. 2. Diabetes. 3. Chronic obstructive pulmonary disease. 4. Hypertension. Blood pressures are stable currently. 5. Chronic medical noncompliance. PLAN: As noted continue Entresto. Continue Lasix and we will follow. Hopefully home over the next couple of days. cc: Obie Pool MD
--- NOTE | 2018-12-30 17:27 | PROGRESS NOTE ---
DATE: 12/30/2018 SUBJECTIVE: Patient notes that he is feeling okay. Denies any chest pain or palpitations. PHYSICAL EXAMINATION: Vital Signs: Reviewed. He is awake and alert. He is sitting up in the chair. He is in no respiratory distress. HEENT: Normocephalic. Neck: Supple. Cardiovascular: Regular rate. Chest: Clear. No crackles. Abdomen: Soft. Extremities: Moves all extremities. He does have trace edema. ASSESSMENT: 1. Congestive heart failure with exacerbation. Currently, patient is tolerating Entresto. 2. Left upper lobe pneumonia. 3. Chest pain. 4. Diabetes. 5. Hypertension. 6. Hypocalcemia. PLAN: We will continue patient in the hospital today. Continue to follow. Hopefully, his symptoms will improve, and he can discharge home over the next day or two. cc: Obie Pool MD
[2018-12-31] MEDS: ZOSYN 3.375 GM in NS 50 ML IV SCH ×5 (02:41→20:54)
[2018-12-31 05:41] LABS: BASO# 0.02 X1000 (0.0-0.2); BASO% 0.4 % (0.0-0.8); EOS% 1.9 % (0.0-10.0); HEMATOCRIT 46.1 % (42.0-52.0); IMM GRAN# 0.01 X1000 (0.0-0.04); IMM GRAN% 0.2 % (0.0-0.5); LYMPH# 1.15 X1000 (1.2-3.4); LYMPH% 22.2 % (20.5-51.1); MCH 31.6 PG (27-31); MCHC 32.5 g/dL (33-37); MCV 97.1 FL (81-99); MONO# 0.63 X1000 (0.11-0.59); MONO% 12.2 % (1.7-9.3); MPV 10.1 FL (7.4-10.4); NEUT# 3.26 X1000 (1.4-6.5); NEUT% 63.1 % (42.2-75.2); PLT 165 X1000 (130-400); RBC 4.75 XMIL (4.7-6.1); RDW 14.5 % (11.5-14.5); WBC 5.17 X1000 (4.8-10.8)
[2018-12-31] MEDS: ASPIRIN PO SCH (10:04)
[2018-12-31] MEDS: ALDACTONE PO SCH (10:04)
[2018-12-31] MEDS: LEVAQUIN 750 MG/D5W 750 MG/150 ML IVPB IV SCH (10:05)
[2018-12-31] MEDS: ENTRESTO 24 MG-26 MG TABLET PO SCH ×2 (10:05→20:55)
--- NOTE | 2018-12-31 10:23 | PROGRESS NOTE ---
DATE: 12/31/2018 SUBJECTIVE: Patient feels better this morning and denies having any acute complaints. OBJECTIVE: Vital Signs: Temperature 97.4 degrees, pulse 104 per minute, respiratory rate 22 per minute, blood pressure 116/97, pulse oximetry 98% on 3 L of oxygen via nasal cannula. General: Patient is alert and oriented x3. He does not appear to be in any acute distress. Cardiovascular System: First and second heart sounds are audible without murmurs, gallops or rubs. Respiratory System: Bilateral lung air entry is moderately decreased but there are no rales or rhonchi present on auscultation. Gastrointestinal System: Abdomen is soft and nondistended. Normal bowel sounds are present. DIAGNOSTIC DATA: CBC is nondiagnostic and chemistry showed glucose levels of 152. AST 49, ALT 53, alkaline phosphatase 219, and albumin level of 2.8. Rest of the comprehensive metabolic panel is nondiagnostic. Chest x-ray done on 12/29/2018 showed left upper lobe infiltrate. IMPRESSION: 1. Left upper lobe pneumonia. 2. Ischemic cardiomyopathy. 3. Type 2 diabetes mellitus. 4. Multisubstance abuse. PLAN: The patient will continue to receive Zosyn intravenously for his pneumonia. He is also getting levofloxacin IV. We are going to switch him to oral furosemide 40 mg orally once daily and I am going to initiate him on spironolactone 25 mg orally once daily in the morning. Furthermore, I am going to initiate him on aspirin 81 mg orally once daily along with pravastatin 20 mg orally once daily at bedtime because of his ischemic cardiomyopathy. He will continue to receive Entresto 24 mg/26 mg orally twice daily. Because of his left upper lobe pneumonia and history of drug abuse, I am going to obtain a QuantiFERON TB testing to rule out any tuberculosis. Further recommendation will be given as per outcome of these measures. cc: MD Obie Javier MD
[2018-12-31] MEDS ORDERED: PRAVACHOL PO SCH (21:00)
[2019-01-01] MEDS: ZOSYN 3.375 GM in NS 50 ML IV SCH ×2 (01:29→06:22)
[2019-01-01 07:02] LABS: BASO# 0.03 X1000 (0.0-0.2); BASO% 0.6 % (0.0-0.8); HEMATOCRIT 45.1 % (42.0-52.0); HEMOGLOBIN 14.5 g/dL (14.0-18.0); IMM GRAN# 0.01 X1000 (0.0-0.04); IMM GRAN% 0.2 % (0.0-0.5); LYMPH% 28.5 % (20.5-51.1); MCH 31.2 PG (27-31); MCHC 32.2 g/dL (33-37); MONO# 0.64 X1000 (0.11-0.59); MPV 10.2 FL (7.4-10.4); NEUT# 2.73 X1000 (1.4-6.5); NEUT% 55.7 % (42.2-75.2); PLT 184 X1000 (130-400); RBC 4.65 XMIL (4.7-6.1); RDW 14.2 % (11.5-14.5); WBC 4.91 X1000 (4.8-10.8)
[2019-01-01 07:24] LABS: AGAP 6; BUN 17 mg/dL (8-22); CALCIUM 8.1 mg/dL (8.8-10.2); CHLORIDE 106 mmol/L (98-107); COSMO 284; CREATININE 0.9 mg/dL (0.7-1.2); ESTIMATED GFR > 60; GLUCOSE 258 mg/dL (70-104); POTASSIUM 3.9 mmol/L (3.5-5.1); SODIUM 137 mmol/L (136-145); TCO2 25 mmol/L (25-35)
[2019-01-01 08:00] VITALS: BP 115/91
--- NOTE | 2019-01-01 08:19 | Diag Imaging Result Doc PS360 ---
EXAM: CHEST-PORTABLE - 01/01/2019 HISTORY: Pneumonia TECHNIQUE: Portable chest one view COMPARISON: 12/29/2018 FINDINGS: There is stable cardiomegaly. There is a possible decrease in left upper lobe infiltrate. There are no other interval changes identified. IMPRESSION: Stable cardiomegaly. Possible decrease in left upper lobe infiltrate. Electronically signed by Luisito Arthur 01/01/2019 8:17 AM
[2019-01-01] MEDS: ASPIRIN PO SCH (08:50)
[2019-01-01] MEDS: ALDACTONE PO SCH (08:50)
[2019-01-01] MEDS: ENTRESTO 24 MG-26 MG TABLET PO SCH (08:50)
[2019-01-01] MEDS: LEVAQUIN 750 MG/D5W 750 MG/150 ML IVPB IV SCH (08:50)
[2019-01-01] MEDS ORDERED: TOPROL XL PO SCH (09:00)
[2019-01-01] MEDS ORDERED: LASIX PO SCH (09:00)
--- NOTE | 2019-01-01 10:16 | DISCHARGE SUMMARY ---
ADMISSION DATE: 12/29/2018 DISCHARGE DATE: 01/01/2019 DISCHARGE DIAGNOSIS: 1. Left upper lobe pneumonia. 2. Ischemic cardiomyopathy. 3. Type 2 diabetes mellitus. 4. Multi substance drug abuse. HOSPITAL COURSE: Mr. Henley is a 53-year-old gentleman who came into the emergency room with complaint of having shortness of breath. He has not been compliant with his home medications and has multiple admissions because of that. He was admitted to the hospital and was initiated on Zosyn along with levofloxacin intravenously. His left upper lobe infiltrate has improved since admission. We are therefore going to discharge him home. I did optimize his routine medications for ischemic cardiomyopathy. Since patient's condition has improved, we are going to let him go home today. We did order QuantiFERON-TB testing, which is pending at the time of this dictation. DISCHARGE MEDICATIONS: 1. Levofloxacin 750 mg orally once daily for 7 days. 2. Furosemide 40 mg orally once daily in the morning. 3. Lisinopril 20 mg orally once daily. 4. Pravastatin 20 mg orally once daily at bedtime. 5. Metoprolol ER 50 mg orally once daily. 6. Aspirin 81 mg orally once daily. 7. Spironolactone 25 mg orally once daily in the morning. 8. Glipizide XL 10 mg orally twice daily. 9. Mirtazapine 15 mg orally once daily at bedtime. FOLLOW-UP: He will follow up with his PCP in approximately 1 to 2 weeks. CONDITION: Stable. DISPOSITION: Home. cc: MD Obie Javier MD
[2019-01-01] MEDS ORDERED: FLU VACCINE IM ONE (10:58)
[2019-01-01] MEDS ORDERED: PNEUMOVAX 23 IM ONE (11:00)
== END 2019-01-01 11:16 | disposition home or self-care (01) | DRG 291 ==
LOC: P.ED 12:22 → P.MEDSURG 15:13 → SUATTDRO 15:13
PROVIDERS: ADMIT Family Medicine; ATTEND Internal Medicine

== ENCOUNTER 2019-02-05 14:52 | Inpatient (IN) ==
--- NOTE | 2019-02-05 15:34 | Diag Imaging Result Doc PS360 ---
EXAM: CHEST-1 VIEW INDICATION: POSSIBLE SEPSIS TECHNIQUE: One view COMPARISON: 01/29/2019 FINDINGS: The central vasculature is mildly prominent suggesting pulmonary venous congestion. There is trace atelectasis versus scarring at the right costophrenic angle. The lungs are grossly clear, otherwise. There is no discrete pleural fluid collection or pneumothorax. There is stable cardiomegaly. IMPRESSION: Cardiomegaly and suggestion of mild pulmonary venous congestion. Electronically signed by Roland Uriostegui 02/05/2019 3:32 PM
[2019-02-05 16:09] LABS: BASO# 0.02 X1000 (0.0-0.2); BASO% 0.3 % (0.0-0.8); EOS# 0.04 X1000 (0.0-0.7); EOS% 0.7 % (0.0-10.0); HEMATOCRIT 43.4 % (42.0-52.0); HEMOGLOBIN 14.3 g/dL (14.0-18.0); LYMPH# 1.34 X1000 (1.2-3.4); MCH 31.8 PG (27-31); MCHC 32.9 g/dL (33-37); MCV 96.4 FL (81-99); MONO# 0.76 X1000 (0.11-0.59); MONO% 12.5 % (1.7-9.3); MPV 9.7 FL (7.4-10.4); NEUT# 3.92 X1000 (1.4-6.5); NEUT% 64.5 % (42.2-75.2); PLT 194 X1000 (130-400); RDW 14.9 % (11.5-14.5); WBC 6.08 X1000 (4.8-10.8)
[2019-02-05 16:28] LABS: INR 1.37; PROTIME 17.1 Seconds (11.0-16.0)
[2019-02-05 16:29] LABS: PTT 25.9 Seconds (22.3-41.8)
[2019-02-05 16:31] LABS: AGAP 14; ALB/GLOB RATIO 0.8; ALKALINE PHOSPHATASE 202 U/L (32-122); BUN 19 mg/dL (8-22); CALCIUM 8.7 mg/dL (8.8-10.2); CHLORIDE 99 mmol/L (98-107); COSMO 280; CREATININE 1.1 mg/dL (0.7-1.2); ESTIMATED GFR > 60; GLUCOSE 105 mg/dL (70-104); GOT 56 U/L (10-34); GPT 41 U/L (10-44); POTASSIUM 4.4 mmol/L (3.5-5.1); SODIUM 139 mmol/L (136-145); TCO2 26 mmol/L (25-35); TOTAL BILIRUBIN 4.09 mg/dL (0.20-1.00)
[2019-02-05 16:35] LABS: CK PROFILE 219 U/L (24-204)
[2019-02-05 16:37] LABS: URINE SOURCE CLEAN CATCH
[2019-02-05] MEDS ORDERED: LASIX IV ONE (16:38)
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
[2019-02-05 16:42] LABS: BILIRUBIN URINE SMALL (NEGATIVE); BLOOD URINE NEGATIVE (NEGATIVE); COLOR YELLOW; GLUCOSE URINE NEGATIVE (NEGATIVE); KETONE URINE NEGATIVE (NEGATIVE); LEUKOCYTES URINE NEGATIVE (NEGATIVE); NITRITE URINE NEGATIVE (NEGATIVE); PH URINE 6.5; PROTEIN URINE 30 mg/dL (NEGATIVE); SP GRAVITY URINE 1.018; TURBIDITY URINE CLEAR (CLEAR); UROBILINOGEN URINE 6 mg/dL (NORMAL)
[2019-02-05 16:58] LABS: UR EPITHELIAL CELLS <10 /HPF (<10); URINE BACTERIA NEGATIVE /HPF; URINE RBC <10 /HPF (<10); URINE WBC <10 /HPF (<10)
[2019-02-05 17:09] LABS: CK INDEX 2.2 (0.0-2.5); CK-MB 4.72 ng/mL (0.0-5.0)
[2019-02-05] MEDS: ROCEPHIN 1 GM in NS 50 ML IV SCH (19:54)
[2019-02-05 20:04] LABS: UR AMPHETAMINES QUAL PRESUMPTIVE POSITIVE (NONE DETECT); UR BARBITUATES QUAL NONE DETECTED (NONE DETECT); UR BENZODIAZEPIN QUAL NONE DETECTED (NONE DETECT); UR CANNABINOIDS QUAL PRESUMPTIVE POSITIVE (NONE DETECT); UR COCAINE QUAL NONE DETECTED (NONE DETECT); UR METHADONE QUAL NONE DETECTED (NONE DETECT); UR OPIATES QUAL NONE DETECTED (NONE DETECT); UR OXYCODONE QUAL NONE DETECTED (NONE DETECT); UR PCP QUAL NONE DETECTED (NONE DETECT)
[2019-02-05] MEDS ORDERED: ZOFRAN IV PRN (21:15)
[2019-02-05] MEDS ORDERED: REMERON PO PRN (21:15)
[2019-02-05] MEDS ORDERED: NS NEB INH SCH (21:15)
--- NOTE | 2019-02-05 22:18 | EKG Report ---
Test Performed on : 02/05/2019 8:01:37 PM Test Reason : chest pain Blood Pressure : / mmHG Vent. Rate : 099 BPM Atrial Rate : 099 BPM P-R Int : 200 ms QRS Dur : 146 ms QT Int : 404 ms P-R-T Axes : 000 270 085 degrees QTc Int : 518 ms Normal sinus rhythm. Right superior axis deviation Nonspecific intraventricular block Abnormal ECG When compared with ECG of 05-FEB-2019 14:58, (Unconfirmed) LA interval has decreased QT has lengthened Unconfirmed Result
[2019-02-05] MEDS: HUMULIN R SUBQ SCH (22:53)
[2019-02-05] MEDS: XOPENEX NEB INH PRN (23:07)
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
[2019-02-06] MEDS: APRESOLINE PO SCH ×3 (01:16→20:51)
[2019-02-06] MEDS: COREG PO SCH ×3 (04:20→20:51)
[2019-02-06] MEDS: LASIX IV SCH ×2 (05:02→17:43)
[2019-02-06] MEDS: LOVENOX SUBQ SCH (05:03)
[2019-02-06 05:20] LABS: BASO# 0.02 X1000 (0.0-0.2); BASO% 0.3 % (0.0-0.8); EOS# 0.07 X1000 (0.0-0.7); EOS% 1.1 % (0.0-10.0); HEMATOCRIT 41.5 % (42.0-52.0); HEMOGLOBIN 13.8 g/dL (14.0-18.0); LYMPH# 1.29 X1000 (1.2-3.4); LYMPH% 20.3 % (20.5-51.1); MCH 32.3 PG (27-31); MCHC 33.3 g/dL (33-37); MCV 97.2 FL (81-99); MONO# 0.82 X1000 (0.11-0.59); MONO% 12.9 % (1.7-9.3); MPV 9.9 FL (7.4-10.4); NEUT# 4.14 X1000 (1.4-6.5); NEUT% 65.4 % (42.2-75.2); PLT 184 X1000 (130-400); RBC 4.27 XMIL (4.7-6.1); RDW 14.9 % (11.5-14.5); WBC 6.34 X1000 (4.8-10.8)
[2019-02-06 05:54] LABS: HEMOGLOBIN A1C 7.6 % (4.8-6.0)
[2019-02-06 06:26] LABS: AGAP 13; ALB/GLOB RATIO 0.6; ALBUMIN 2.8 g/dL (3.5-5.0); ALKALINE PHOSPHATASE 192 U/L (32-122); BUN 20 mg/dL (8-22); CALCIUM 8.3 mg/dL (8.8-10.2); CHLORIDE 99 mmol/L (98-107); COSMO 280; CREATININE 1.2 mg/dL (0.7-1.2); ESTIMATED GFR > 60; GLUCOSE 166 mg/dL (70-104); GOT 49 U/L (10-34); GPT 40 U/L (10-44); POTASSIUM 3.9 mmol/L (3.5-5.1); SODIUM 137 mmol/L (136-145); TCO2 25 mmol/L (25-35); TOTAL BILIRUBIN 3.35 mg/dL (0.20-1.00); TOTAL PROTEIN 7.2 g/dL (6.3-8.3)
[2019-02-06] MEDS: HUMULIN N SUBQ SCH (07:28)
--- NOTE | 2019-02-06 09:02 | Diag Imaging Result Doc PS360 ---
EXAM: CHEST-2 VIEWS 02/06/2019 HISTORY: hypoxia TECHNIQUE: PA and lateral chest COMMENT: There is what appears to be fibrosis in the right costophrenic sulcus laterally. The left lower lung is clearer than on the previous study of 02/05/2019. Otherwise are has been no appreciable change. IMPRESSION: Cardiomegaly. Stable chest. Electronically signed by Yair Montana 02/06/2019 8:59 AM
[2019-02-06] MEDS: XOPENEX NEB INH PRN ×4 (09:11→19:39)
[2019-02-06] MEDS: ALDACTONE PO SCH (09:34)
[2019-02-06] MEDS: GLUCOTROL XL PO SCH (09:34)
[2019-02-06] MEDS: HUMULIN R SUBQ SCH ×4 (09:36→20:53)
--- NOTE | 2019-02-06 15:00 | PROGRESS NOTE ---
DATE: 02/06/2019 SUBJECTIVE: The patient has no major complaints. OBJECTIVE: Blood pressure is 107/80, heart rate of 103, respiratory rate of 22, temperature 98.6 degrees, 92% on 2 L. Cardiovascular: Regular rate and rhythm. Pulmonary: Bilateral breath sounds clear to auscultation. GI: Soft, nontender, nondistended. Bowel sounds were positive. He has a midline hernia which is reducible and a periumbilical hernia which is also reducible. The patient is otherwise stable. He is complaining of discomfort but no actual nausea and emesis. Laboratory Data: White count 6, hemoglobin and hematocrit 13 and 41. Creatinine of 1.2. Total bilirubin 3.35, AST and ALT of 49 and 40. Amphetamines were positive on his UDS. PROBLEM LIST: 1. Acute congestive heart failure exacerbation. We will continue Lasix. He is on Coreg and diuretics, and follow. He still abuses methamphetamine which is probably the mechanism of this tachycardia. We will continue to monitor. 2. Bronchitis. We will continue empiric antibiotics and follow. 3. Type 2 diabetes. His blood sugars are stable. 4. Polysubstance abuse. Advised on cessation of methamphetamine. I told him the lethal risks, especially in the setting of cardiac disease and various issues. He understands this but he has been abusing this off and on for 20 years. 5. Disposition. I think if he stabilizes, possibly home tomorrow. 6. Abdominal pain. We will continue to monitor closely for improvement. cc: Juliano Neil MD
--- NOTE | 2019-02-06 17:11 | Diag Imaging Result Doc PS360 ---
CT ABD/PELVIS W/ORAL CONT ONLY - 02/06/2019 INDICATION: pain COMPARISON: 07/31/2018 FINDINGS: There is significant cardiomegaly. There are trace pleural effusions. There is pulmonary edema in the lung bases. There are hazy multifocal infiltrates in both lung bases compatible with pneumonia. There is severe body wall edema. There is trace ascites. There is a stable small ventral hernia in the lower abdomen which contains some fluid as well as fat. Stable bilateral inguinal hernias containing fat and fluid. No bowel herniation. Urinary bladder is collapsed with nonspecific wall thickening. No bowel obstruction or inflammation. Normal appendix. No renal stones or obstruction. Abdominal organs are grossly normal. There are moderate degenerative changes of the spine. No acute or suspicious bony lesion. IMPRESSION: 1. Cardiomegaly, pulmonary edema, trace pleural effusions. Possible pneumonia in the lung bases. 2. Ascites. Body wall edema. 3. Small fat-containing hernias. This exam was performed using automated exposure control, adjustment of mA or kV according to patient size, and/or use of iterative reconstruction technique Electronically signed by Reed Martínez 02/06/2019 5:09 PM
[2019-02-06] MEDS: ROCEPHIN 1 GM in NS 50 ML IV SCH (20:51)
[2019-02-07] MEDS: LOVENOX SUBQ SCH ×2 (04:46→05:35)
[2019-02-07] MEDS: LASIX IV SCH ×2 (04:46→17:25)
[2019-02-07 05:21] LABS: HEMATOCRIT 42.4 % (42.0-52.0); HEMOGLOBIN 13.9 g/dL (14.0-18.0); MCH 31.7 PG (27-31); MCHC 32.8 g/dL (33-37); MCV 96.6 FL (81-99); MPV 9.9 FL (7.4-10.4); RBC 4.39 XMIL (4.7-6.1); RDW 14.8 % (11.5-14.5); WBC 6.91 X1000 (4.8-10.8)
[2019-02-07 05:45] LABS: AGAP 11; ALB/GLOB RATIO 0.6; ALBUMIN 2.7 g/dL (3.5-5.0); ALKALINE PHOSPHATASE 211 U/L (32-122); BUN 22 mg/dL (8-22); CALCIUM 8.3 mg/dL (8.8-10.2); CHLORIDE 100 mmol/L (98-107); COSMO 286; CREATININE 1.2 mg/dL (0.7-1.2); ESTIMATED GFR > 60; GLUCOSE 155 mg/dL (70-104); GOT 42 U/L (10-34); GPT 35 U/L (10-44); POTASSIUM 3.9 mmol/L (3.5-5.1); SODIUM 140 mmol/L (136-145); TCO2 29 mmol/L (25-35); TOTAL BILIRUBIN 3.25 mg/dL (0.20-1.00); TOTAL PROTEIN 7.1 g/dL (6.3-8.3)
[2019-02-07] MEDS: HUMULIN R SUBQ SCH ×4 (06:00→21:01)
[2019-02-07] MEDS: HUMULIN N SUBQ SCH (06:20)
[2019-02-07] MEDS: XOPENEX NEB INH PRN ×2 (07:30→11:26)
[2019-02-07] MEDS: COREG PO SCH ×2 (08:43→21:00)
[2019-02-07] MEDS: GLUCOTROL XL PO SCH (08:43)
[2019-02-07] MEDS: ALDACTONE PO SCH (08:44)
[2019-02-07] MEDS: APRESOLINE PO SCH ×2 (08:44→21:01)
[2019-02-07] MEDS: ROCEPHIN 1 GM in NS 50 ML IV SCH (21:00)
[2019-02-07] MEDS ORDERED: PHENOBARBITAL IV ONE (21:40)
[2019-02-07 22:12] LABS: MAGNESIUM 1.8 mg/dL (1.5-2.7); POTASSIUM 4.2 mmol/L (3.5-5.1)
[2019-02-08 05:36] LABS: BASO# 0.02 X1000 (0.0-0.2); BASO% 0.3 % (0.0-0.8); EOS# 0.06 X1000 (0.0-0.7); HEMATOCRIT 41.5 % (42.0-52.0); HEMOGLOBIN 13.7 g/dL (14.0-18.0); LYMPH# 0.86 X1000 (1.2-3.4); LYMPH% 14.5 % (20.5-51.1); MONO# 0.84 X1000 (0.11-0.59); MONO% 14.1 % (1.7-9.3); MPV 9.9 FL (7.4-10.4); NEUT# 4.17 X1000 (1.4-6.5); NEUT% 70.1 % (42.2-75.2); PLT 204 X1000 (130-400); RBC 4.28 XMIL (4.7-6.1); RDW 14.8 % (11.5-14.5); WBC 5.95 X1000 (4.8-10.8)
[2019-02-08] MEDS: NICODERM PATCH TD SCH ×2 (05:54→09:22)
[2019-02-08] MEDS: LOVENOX SUBQ SCH (05:54)
[2019-02-08] MEDS: LASIX IV SCH (05:54)
[2019-02-08] MEDS: HUMULIN R SUBQ SCH ×2 (05:59→11:35)
[2019-02-08] MEDS: HUMULIN N SUBQ SCH (06:00)
--- NOTE | 2019-02-08 06:11 | PROGRESS NOTE ---
DATE: 02/08/2019 SUBJECTIVE: The patient has improved nausea. OBJECTIVE: Blood pressure 109/88, heart rate 92, respiratory rate 24, temperature 98.3 degrees.Cardiovascular: Regular rate and rhythm. Pulmonary: Bilateral breath sounds. GI: Soft, nontender, nondistended. Bowel sounds are positive. Extremities: No clubbing or cyanosis. No peripheral edema. Overall improved. LABORATORY DATA: White count is 6, Hemoglobin and hematocrit 13 and 42. Platelets stable, basic was stable. PROBLEM LIST: 1. Acute congestive heart failure exacerbation. Continue Lasix, Coreg, and follow. 2. Bronchitis. Continue empiric antibiotics. 3. Diabetes. Continue regular medications and follow. Disposition pending clinical course. 4. Abdominal pain. CT was unremarkable without contrast, of course. May need to consider GI consult if unimproved; may be related to CHF exacerbation/passive hepatic congestion. DISPOSITION: Pending clinical status. We will advise on tobacco use. cc: Juliano Neil MD MTDD
[2019-02-08 07:19] LABS: AGAP 15; BUN 20 mg/dL (8-22); CALCIUM 8.3 mg/dL (8.8-10.2); CHLORIDE 95 mmol/L (98-107); COSMO 272; CREATININE 1.2 mg/dL (0.7-1.2); GLUCOSE 211 mg/dL (70-104); POTASSIUM 4.2 mmol/L (3.5-5.1); SODIUM 131 mmol/L (136-145); TCO2 21 mmol/L (25-35)
[2019-02-08] MEDS: APRESOLINE PO SCH (09:22)
[2019-02-08] MEDS: COREG PO SCH (09:22)
[2019-02-08] MEDS: ALDACTONE PO SCH (09:23)
[2019-02-08] MEDS: GLUCOTROL XL PO SCH (09:23)
[2019-02-08 12:21] VITALS: BP 103/75
--- NOTE | 2019-03-01 10:16 | DISCHARGE SUMMARY ---
ADMISSION DATE: 02/05/2019 DISCHARGE DATE: 02/08/2019 DISCHARGE DIAGNOSES: 1. Acute congestive heart failure exacerbation. 2. Bronchitis. 3. Diabetes. CONSULTATIONS: None. HOSPITAL COURSE: This is a 53-year-old male with known CHF, EF of 15%, pulmonary hypertension with a proBNP of 7000 with mild CHF. He was placed on IV diuretics. He had very poor compliance in the past. We put him back on Coreg for his tachycardia. He also had methamphetamine which was not analyzed in the ER on admission. He had some bronchitis. He was placed on that. We advised on stopping illicit substances. CT was obtained which showed cardiomegaly, pulmonary edema, ascites, but no romel obstruction. He clinically improved, and he was felt stable for discharge. I guess he ended up going on the ; he had an 18 beat run of ventricular tachycardia. He qualified for home oxygen, and he was set up with home oxygen. DISCHARGE MEDICATIONS FOLLOWS: Remeron 15, hydralazine 25 b.i.d., Coreg 25 b.i.d., losartan 50 daily, NPH 10 b.i.d., pravastatin 20 daily, metoprolol 50 daily, Aldactone 25 daily, glipizide 10 daily, Lasix 80 b.i.d., Zofran p.r.n., Phenergan p.r.n., but these were given in the ER. Actually Dr. Martinez discharged this patient. [facility]. Advised against drug abuse. cc: Juliano Neil MD
== END 2019-02-08 15:01 | disposition home or self-care (01) | DRG 293 ==
LOC: ED 14:52 → SUATTDRO 21:03 → 1N 21:03
PROVIDERS: ATTEND Internal Medicine